=== PATIENT | female | born 1980 | race Caucasian/White ===

== ENCOUNTER 2019-06-16 21:56 | Inpatient (IN) | payer OTHER ==
[~2019-06-16] VITALS: Ht 167.6 cm; Wt 90.3 kg
[2019-06-16 22:28] VITALS: Ht 167.6 cm; Wt 90.3 kg
[2019-06-16 23:33] LABS: BASOPHIL % 0.4 % (0-2); PLATELET COUNT 299 x10^3mcL (130-400); RED CELL DISTRIBUTION WIDTH 22.6 % (11.5-14.5)
[2019-06-16 23:43] LABS: CALCIUM 8.1 mg/dL (8.5-10.1); CARBON DIOXIDE 28.8 mmol/L (21-32); CHLORIDE SERUM 101 mmol/L (98-107); GFR1 > 60 mL/min; GLUCOSE SERUM 110 mg/dL (74-106); POTASSIUM SERUM 3.7 mmol/L (3.5-5.1); SODIUM SERUM 137 mmol/L (136-145)
[2019-06-16 23:48] LABS: ALKALINE PHOSPHATASE 67 U/L (46-116); ALT/SGPT 11 U/L (14-59); AST/SGOT 11 U/L (15-37); BILIRUBIN TOTAL 0.3 mg/dL (0.20-1.00); TOTAL PROTEIN, SERUM 7.1 g/dL (6.4-8.2)
[2019-06-16 23:50] LABS: ALBUMIN 2.5 g/dL (3.4-5.0)
[2019-06-17 04:29] VITALS: BP 111/69
[2019-06-17 07:42] LABS: BASOPHIL % 0.3 % (0-2); PLATELET COUNT 290 x10^3mcL (130-400)
[2019-06-17 07:45] LABS: RED CELL DISTRIBUTION WIDTH 24.4 % (11.5-14.5)
[2019-06-17 08:02] LABS: CARBON DIOXIDE 24.9 mmol/L (21-32); CHLORIDE SERUM 105 mmol/L (98-107); CREATININE SERUM 0.8 mg/dL (0.6-1.0); GFR1 > 60 mL/min; GLUCOSE SERUM 100 mg/dL (74-106); PHOSPHOROUS 2.4 mg/dL (2.5-4.9); POTASSIUM SERUM 3.3 mmol/L (3.5-5.1); SODIUM SERUM 139 mmol/L (136-145)
[2019-06-17 09:41] VITALS: BP 104/68
[2019-06-17 10:21] LABS: rbc morphology (normal/abnorm) ABNORMAL (NORMAL)
[2019-06-17 10:22] LABS: microscopic required? YES; urine erythrocyte NEGATIVE (NEGATIVE)
[2019-06-17 10:42] LABS: AMPHETAMINE QUAL UR POSITIVE (See below)
[2019-06-17 12:38] VITALS: BP 101/61
[2019-06-17 16:53] VITALS: BP 110/64
[2019-06-17 22:17] VITALS: BP 112/66
[2019-06-18 06:13] VITALS: BP 100/65
[2019-06-18 06:31] LABS: BASOPHIL % 0.6 % (0-2); PLATELET COUNT 261 x10^3mcL (130-400)
[2019-06-18 06:46] LABS: RED CELL DISTRIBUTION WIDTH 23.4 % (11.5-14.5)
[2019-06-18 06:55] LABS: CALCIUM 7.8 mg/dL (8.5-10.1); CARBON DIOXIDE 23.6 mmol/L (21-32); CHLORIDE SERUM 105 mmol/L (98-107); CREATININE SERUM 0.8 mg/dL (0.6-1.0); GFR1 > 60 mL/min; GLUCOSE SERUM 102 mg/dL (74-106); POTASSIUM SERUM 3.7 mmol/L (3.5-5.1); SODIUM SERUM 139 mmol/L (136-145)
[2019-06-18 08:31] VITALS: BP 111/54
[2019-06-18 12:35] VITALS: BP 108/64
[2019-06-18] MEDS ORDERED: FERROUS SULFAT325 M2 PO (13:26)
[2019-06-18] MEDS ORDERED: PRENATAL LOW IR1 TA1 PO (13:26)
== END 2019-06-18 14:21 | disposition home or self-care (01) | DRG 566 ==
LOC: ED 21:56 → DU 06-17 02:58
PROVIDERS: ADMIT Internal Medicine
PROC: 30233N1 Transfusion of Nonautologous Red Blood Cells into Peripheral Vein, Percutaneous Approach (ICD-10-PCS; principal; 2019-06-17)
DX: O99.013 Anemia complicating pregnancy, third trimester (principal); E46 Unspecified protein-calorie malnutrition; E83.39 Other disorders of phosphorus metabolism; O23.43 Unspecified infection of urinary tract in pregnancy, third trimester; O99.323 Drug use complicating pregnancy, third trimester; D50.9 Iron deficiency anemia, unspecified; F15.10 Other stimulant abuse, uncomplicated; E87.6 Hypokalemia; O26.893 Other specified pregnancy related conditions, third trimester; J45.909 Unspecified asthma, uncomplicated; O09.523 Supervision of elderly multigravida, third trimester; R55 Syncope and collapse; O99.513 Diseases of the respiratory system complicating pregnancy, third trimester; O25.13 Malnutrition in pregnancy, third trimester; Z3A.29 29 weeks gestation of pregnancy; Z88.0 Allergy status to penicillin
CPT/HCPCS: 83880; 97116-GP; G0378; J2405; J7030; J7040; J8597; P9016; Q0092; Q0162

== ENCOUNTER 2019-07-31 13:05 | Emergency (ER) | payer OTHER ==
[~2019-07-31] VITALS: Ht 167.6 cm; Wt 94.1 kg
[~2019-07-31 13:05] MED LIST: FERROUS SULFAT325 M2 PO; PRENATAL LOW IR1 TA1 PO
[2019-07-31 13:11] VITALS: Ht 167.6 cm; Wt 94.1 kg
[2019-07-31 16:54] VITALS: BP 108/64
== END 2019-07-31 16:54 | disposition home or self-care (01) ==
LOC: ED 13:05
DX: O26.891 Other specified pregnancy related conditions, first trimester (principal); K04.7 Periapical abscess without sinus; K05.319 Chronic periodontitis, localized, unspecified severity; O99.511 Diseases of the respiratory system complicating pregnancy, first trimester; Z88.0 Allergy status to penicillin
CPT/HCPCS: J2001

== ENCOUNTER 2019-08-18 04:40 | Emergency (ER) | payer OTHER ==
[~2019-08-18] VITALS: Ht 167.6 cm; Wt 93.9 kg
[2019-08-18 04:52] VITALS: Ht 167.6 cm; Wt 93.9 kg
[2019-08-18 05:07] VITALS: BP 110/61
== END 2019-08-18 05:35 | disposition short-term general hospital (02) ==
LOC: ED 04:40
DX: O75.89 Other specified complications of labor and delivery (principal); O99.519 Diseases of the respiratory system complicating pregnancy, unspecified trimester; J45.909 Unspecified asthma, uncomplicated; Z88.0 Allergy status to penicillin
CPT/HCPCS: J3105; J7030